=== PATIENT | male | born 2000 | race Caucasian/White ===

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

== ENCOUNTER 2020-09-05 17:56 | Emergency (ER) | payer OTHER, SELFPAY ==
[2020-09-05 17:56] VITALS: BP 123/70; PULSE 91; RESP 18; TEMP 36.2; O2SAT 97; BMI 21.5
--- NOTE | 2020-09-05 19:25 | EX.ED.GENINJ ---
HPI History of Present Illness Chief Complaint: Laceration Informant: patient Onset/Context/Timing Onset: Today Location of pain/injuries: Left thigh Quality of Pain: Aching Current Severity: Mild Maximum Severity: Mild Associated Symptoms Associated Symptoms: Negative for Parasthesias and Weakness Narrative Narrative: Patient presents with laceration to his left thigh. He hit his left leg with a chainsaw. He has multiple superficial lacerations. Minimal bleeding. No difficulty with ambulation. [facility] Medical History (Updated 09/05/20 @ 19:[address] Kaley Lamb MD) Seasonal allergies Home Medications NK 09/05/20 [History Last Taken Unknown] Allergy/AdvReac Type Severity Reaction Status Date / Time dairy Allergy Unknown Uncoded 09/05/20 17:58 Social History Smoking Status: Never smoker alcohol intake: never ROS ROS ED Constitutional Constitutional ED: Denies chills or fever(s) Eyes Eyes: Denies change in vision ENT ENT ED: Denies sore throat Cardiovascular Cardiovascular: Denies chest pain Respiratory/Chest Respiratory/Chest: Denies cough or dyspnea Gastrointestinal Gastrointestinal: Denies abdominal pain, diarrhea, nausea or vomiting Genitourinary Genitourinary ED: Denies dysuria Musculoskeletal Musculoskeletal: Denies back pain Integumentary Reports other Details: Lacerations left thigh ; Denies rash Neurologic Neurologic: Denies headache(s) or weakness Psychiatric Psychiatric: Denies anxiety or depression Endocrine Endocrinology: Denies polydipsia or polyuria Allergic/Immunologic Allergic/Immunologic ED: Denies urticaria EXAM Physical Exam Const Vital Signs: 09/05/20 17:56 Temperature 97.1 F L Temperature Source Temporal Pulse Rate 91 Respiratory Rate 18 Blood Pressure 123/70 H Blood Pressure Mean 87 Pulse Ox 97 Oxygen Delivery Method Room Air Positive well nourished and well developed General Appearance ED: well developed HEENT Reports normocephalic and head/scalp atraumatic Eyes PERRL and EOMs intact bilaterally Neck supple Chest Wall inspection of chest normal and palpation of chest normal Resp normal respiratory effort and clear to auscultation bilaterally Cardio regular rate and regular rhythm GI normal to inspection, nondistended, normoactive bowel sounds Palpation: soft Back/Spine no CVA tenderness Extremity Extremity Narrative: Multiple superficial abrasions to the left anterior thigh. There is a 2 cm long laceration through the skin. There is an adjacent 1 cm laceration. Neuro oriented x3 and no sensory deficits noted Sensorium / Orientation: alert Motor Exam: strength 5/5 throughout Psych mental status grossly normal Skin Skin Narrative: Left thigh laceration as above PROC Procedures Lacerations 2 cm laceration: Length: 0.79 in Depth: Skin Shape: Linear Prep: Shure-Clens Laceration repair: Irrigated, Lidocaine and Local Number of Sutures/Shanta: 3 Suture Information: Ethilon, Simple and 5-0 1 cm: Length: 0.39 in Depth: Skin Shape: Linear Laceration repair: Irrigated, Lidocaine and Local Number of Sutures/Shanta: 1 Suture Information: Ethilon, Simple and 5-0 [facility] Treatment and Re-Evaluation Comments:: Left leg wounds were cleansed. 6 cc of 1% lidocaine were used locally. The 2 cm laceration is closed with 3 simple interrupted sutures of 5-0 nylon. The 1 cm laceration is closed with a single 5-0 suture. Tetanus update is provided. Wound care is discussed and patient is to have sutures removed in 1 week. Discharge Plan Triage Chief Complaint: Laceration ED Provider: Kaley Lamb Dx/Rx/DC Orders Clinical Impression: Laceration of leg Instructions: ED Laceration: All Closures Prescriptions: No Action NK RF: 0 Primary Care Provider: Cat Rod Referrals: Cat Rod MD [Primary Care Provider] - 7 Days for suture removal Disposition Disposition: Home, self care Discharge Date/Time: 09/05/20 20:25
[2020-09-05] MEDS: Diphth,Pertuss(Acell),Tet Vac 0.5 ML Vial IM (19:28)
[2020-09-05] MEDS: Lidocaine 1% (20 ml mdv) 20 ML Vial INFILT (19:30)
== END 2020-09-05 20:25 | disposition home or self-care (01) ==
LOC: ED 19:32
PROVIDERS: Emergency Provider Emergency Medicine; PCP Pediatrics
DX: S71.112A Laceration without foreign body, left thigh, initial encounter (principal); W29.3XXA Contact with powered garden and outdoor hand tools and machinery, initial encounter; Y93.9 Activity, unspecified; Y92.9 Unspecified place or not applicable; Y99.9 Unspecified external cause status
CPT/HCPCS: 12002; 90471; 90715; 99283